=== PATIENT | male | born 1940 | race Caucasian/White ===

== ENCOUNTER → 2018-07-11 | Outpatient (CLI) | payer MEDICARE ==
--- NOTE | 2018-07-11 13:27 | RADIOLOGY REPORT (SQ) ---
EXAM DESCRIPTION: NM GASTRIC EMPTYING STUDY COMPLETED DATE/TIME: 07/11/2018 12:54 pm REASON FOR STUDY: EARLY SATIETY (R68.81) R68.81 EARLY SATIETY COMPARISON: None. RADIONUCLIDE AND DOSE: To millicuries Tc-99m Sulfur Colloid. A wide variety of solid foods have been used. The route of agent administration: Oral. TECHNIQUE: 1 minute serial static imaging performed at time of meal, 1 hour, 2 hours, 3 hours, and 4 hours as needed. Once stomach reaches 90% emptying, the test is complete. Image intensity values pl otted with respect to time with linear regression algorithm. LIMITATIONS: None. FINDINGS: Patient was observed for 4 hours. Immediate post meal serves as baseline. Gastric emptying at 30 minutes was 14.9%. Gastric emptying at 60 minutes was 29.8% Gastric emptying at 90 minutes was 44.6%. Gastric emptying at 120 minutes was 59.5%. Gastric emptying at 240 minutes was 100%. Normal values: 60 minutes: 30-90% retained. If less than 30%, abnormally rapid emptying. If greater than 90%, del ayed gastric emptying. 120 minutes: <60% retained. If greater than 60%, delayed gastric emptying. 240 minutes: <10% retained. If greater than 10%, delayed gastric emptying. IMPRESSION: NORMAL GASTRIC EMPTYING. TECHNICAL DOCUMENTATION: JOB ID: [id number] [employer]- All Rights Reserved rev-06/24 Reading location - IP/workstation name: [email or web address]
== END ==
LOC: RAD 07:42
PROVIDERS: ATTEND Internal Medicine Gastroenterology
DX: R68.81 Early satiety (principal)
CPT/HCPCS: 78264; A9541

== ENCOUNTER 2019-07-12 20:10 | Emergency (ER) | payer MEDICARE ==
[2019-07-12] MEDS ORDERED: ONDANSETRON HCL INJ/PF 4 MG/2 ML SDV IV ONE (20:53)
[2019-07-12] MEDS ORDERED: ATENOLOL 50 MG TABLET PO ONE (20:53)
[2019-07-12] MEDS ORDERED: ACETAMINOPHEN 325 MG TABLET PO ONE (20:53)
[2019-07-12] MEDS ORDERED: NORMAL SALINE 500 ML IV ONE (20:54)
--- NOTE | 2019-07-12 20:55 | ER Document Report ---
ED General - General Chief Complaint: High Blood Pressure Stated Complaint: HEADACHE Time Seen by Provider: 07/12/19 20:39 Primary Care Provider: ALE GUEVARA MD [NO LOCAL MD] - Follow up as needed Notes: Patient is a 78-year-old male who comes emergency department for chief complaint of a headache. He states the headache started at about 3:30 PM, he states that he started getting a throbbing headache in the right front of his head just behind his eye. He states he has had occasional waves of nausea as well. He denies pain in the back of his head, neck pain, head injury, fever, visual changes, focal numbness or weakness. He denies frequently getting headaches. He states the headache was worse when he first got it and it is still very bothersome now but not quite as bad. He is not on a blood thinner. Patient has past medical history of hypertension, hyperlipidemia, and cardiac stent. He also smokes. He states he is supposed to take atenolol 25 mg but he did not take it today because he did not eat dinner. He states he did not eat yet today, he usually only eats once a day at night. He denies chest pain, shortness of breath, or any other complaints. TRAVEL OUTSIDE OF THE [place] IN LAST 30 DAYS: No - Related Data Allergies/Adverse Reactions: No Known Allergies Allergy (Unverified 07/12/19 20:55) Past Medical History - General Information source: Patient - Social History Smoking Status: Current Every Day Smoker Frequency of alcohol use: Social Drug Abuse: None Lives with: Spouse/Significant other Family History: CVA - father Patient has homicidal ideation: No - Past Medical History Cardiac Medical History: Reports: Hx Coronary Artery Disease, Hx Hypercholesterolemia, Hx Hypertension Pulmonary Medical History: Reports: Hx COPD Past Surgical History: Reports: Hx Appendectomy, Hx Cardiac Catheterization - with stent Review of Systems - Review of Systems Constitutional: No symptoms reported EENT: No symptoms reported Cardiovascular: No symptoms reported Respiratory: No symptoms reported Gastrointestinal: See HPI Genitourinary: No symptoms reported Male Genitourinary: No symptoms reported Musculoskeletal: No symptoms reported Skin: No symptoms reported Hematologic/Lymphatic: No symptoms reported Neurological/Psychological: See HPI Physical Exam - Vital signs Vitals: Resp BP Pulse Ox 19 172/77 H 98 07/12/19 20:26 07/12/19 20:26 07/12/19 20:26 - Notes Notes: GENERAL: Alert, interacts well. Patient appears mildly uncomfortable HEAD: Normocephalic, atraumatic. EYES: Pupils equal, round, and reactive to light. Extraocular movements intact. ENT: Oral mucosa moist, tongue midline. Oropharynx unremarkable. Airway patent. Nares patent, sinuses non-tender, ear canals unremarkable, TM's intact. NECK: Full range of motion. Supple. Trachea midline. No lymphadenopathy. No nuchal rigidity LUNGS: Clear to auscultation bilaterally, no wheezes, rales, or rhonchi. No respiratory distress. Non-tender chest wall. HEART: Regular rate and rhythm. No murmur ABDOMEN: Soft, non-tender. Non-distended. EXTREMITIES: Moves all 4 extremities spontaneously. No edema, normal radial and dorsalis pedis pulses bilaterally. No cyanosis. BACK: no cervical, thoracic, lumbar midline tenderness. No saddle anesthesia, normal distal neurovascular exam. Moves all extremities in full range of motion. NEUROLOGICAL: Alert and oriented x3. Normal speech. Cranial nerves II through XII grossly intact. Strength 5/5 in all extremities. PSYCH: Normal affect, normal mood. SKIN: Warm, dry, normal turgor. No rashes or lesions noted. Course - Re-evaluation Re-evalutation: 07/12/19 21:03 Patient did give a very specific headache onset of 3:30 PM, after my evaluation patient was quickly scanned to stay within the 6-hour window. Headache was worse at onset. Patient is hypertensive in the 170 systolic, he was given his daily blood pressure medication, initial headache treatment, general work-up pending. Patient is not in distress and he is alert and cooperative. No neurological deficits noted on my exam. CT of the head without contrast was negative. I reevaluated patient after initial treatments and headache is unchanged. Patient will be remedicated. I reevaluated the patient, patient still states he has a headache and is uncomfortable. He does appear slightly more comfortable than previously however. However because of his concerning description along with continued headache, no previous headache history, I discussed with Dr. Blakely. Patient will be evaluated CTA with venogram focus, we do not have MRI available at this time. Venous sinus thrombosis is in the differential. CTA with venogram focus was negative. I reevaluated patient again patient is sitting up, states that his headache has completely resolved. Based on his resolution I have very low suspicion of acute emergent intracranial abnormality. I had discussed lumbar puncture with patient previously and he is already declined, at this time because his headache resolved I do not feel this is indicated regardless. Patient is very grateful for care, I did discuss expectations, follow-up, and return precautions in detail. Patient stable and well-appearing at time of discharge. Note: Patient does have COPD, when he fell asleep he became slightly hypoxic and was placed on oxygen, lungs clear, patient not hypoxic when awake, reportedly this is his baseline, I did discuss this with patient, he does have primary care follow-up. - Vital Signs Vital signs: Temp Pulse Resp BP Pulse Ox 98.4 F 80 20 126/70 H 92 07/13/19 01:15 07/13/19 01:15 07/13/19 01:15 07/13/19 01:15 07/13/19 01:15 - Laboratory Result Diagrams: 07/12/19 21:25 07/12/19 21:25 Laboratory results interpreted by me: 07/12/19 07/12/19 21:25 21:25 MCV 100 H MCH 34.1 H Sodium 135.8 L Carbon Dioxide 31 H Glucose 112 H Discharge - Discharge Clinical Impression: Elevated blood pressure reading Head ache Qualifiers: Headache type: unspecified Headache chronicity pattern: acute headache Intractability: not intractable Qualified Code(s): R51 - Headache Condition: Stable Disposition: HOME, SELF-CARE Additional Instructions: Your imaging does not show any concerning findings, your evaluation is r eassuring. You have been treated for a headache tonight and you have also been treated for your elevated blood pressure. Continue your current blood pressure medication, follow-up with your primary care for additional management of this. Take Tylenol for headaches, drink plenty of fluids, rest. Return if you worsen including returned or severe headache, vomiting, fever, or any other concerning or worsening symptoms. Referrals: ALE GUEVARA MD [NO LOCAL MD] - Follow up as needed
[2019-07-12 21:37] LABS: ABSOLUTE BASOPHILS # (AUTO) 0.1 10^3/uL (0.0-0.2); ABSOLUTE EOSINOPHILS # (AUTO) 0.1 10^3/uL (0.0-0.6); ABSOLUTE LYMPHOCYTES (AUTO) 1.1 10^3/uL (0.5-4.7); ABSOLUTE MONOCYTES (AUTO) 0.5 10^3/uL (0.1-1.4); BASOPHILS % (AUTO) 0.9 % (0-2); EOSINOPHILS % (AUTO) 1.3 % (0-6); HEMATOCRIT 44.5 % (37.9-51.0); HEMOGLOBIN 15.2 g/dL (13.5-17.0); LYMPHOCYTES % (AUTO) 14.6 % (13-45); MEAN CORPUSCULAR HEMOGLOBIN 34.1 pg (27.0-33.4); MEAN CORPUSCULAR HGB CONC 34.1 g/dL (32.0-36.0); MEAN CORPUSCULAR VOLUME 100 fl (80-97); MONOCYTES % (AUTO) 6.2 % (3-13); PLATELET COUNT 207 10^3/uL (150-450); RED BLOOD COUNT 4.46 10^6/uL (4.35-5.55); RED CELL DISTRIBUTION WIDTH 13.5 % (11.5-14.0); TOTAL CELLS COUNTED % (AUTO) 100 %; WHITE BLOOD COUNT 7.8 10^3/uL (4.0-10.5)
--- NOTE | 2019-07-12 21:41 | RADIOLOGY REPORT (SQ) ---
EXAM DESCRIPTION: CT HEAD WITHOUT IV CONTRAST COMPLETED DATE/TME: 07/12/2019 20:52 CLINICAL HISTORY: 78 years, Male, headache, nausea, hypertension COMPARISON: None. TECHNIQUE: Noncontrast CT head was acquired. Coronal and sagittal reformations were created. Images stored on PACS. All CT scanners at this facility use dose modulation, iterative reconstruction, and/or weight based dosing when appropriate to reduce radiation dose to as low as reasonably achievable (ALARA). [facility]: Dose Right [facility]: CareDose [facility]: Dose Right [facility]: Teradose 4D [facility]: [employer] LIMITATIONS: None. FINDINGS: Evaluation of the brain parenchyma reveals mild periventricular and patchy subcortical white matter low attenuation. No acute intracranial hemorrhage, mass effect, or extra-axial fluid is seen. The ventricles and sulcal spaces are normal in size and configuration for age. The globes and orbits were nearly completely excluded from the [id number]. Visualized paranasal sinuses and mastoid air cells are clear. Calcifications are evident about the bilateral carotid vasculature. Additional calcifications are noted about the bilateral vertebral vasculature. No depressed skull fractures. 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 IMPRESSION: No acute intracranial abnormality. Mild chronic microvascular ischemic change. TECHNICAL DOCUMENTATION: Quality ID # [id number]: Final reports with documentation of one or more dose reduction techniques (e.g., Automated exposure control, adjustment of the mA and/or kV according to patient size, use of iterative reconstruction technique) copyright 2011 [employer]- All Rights Reserved
[2019-07-12 22:07] LABS: ANION GAP 5 (5-19); BLOOD UREA NITROGEN 14 mg/dL (7-20); CALCIUM 8.9 mg/dL (8.4-10.2); CARBON DIOXIDE 31 mmol/L (22-30); CHLORIDE 100 mmol/L (98-107); GLUCOSE 112 mg/dL (75-110); POTASSIUM 4.4 mmol/L (3.6-5.0)
[2019-07-12] MEDS ORDERED: DIPHENHYDRAMINE HCL 50 MG/ML VIAL IV ONE (22:07)
[2019-07-12] MEDS ORDERED: METOCLOPRAMIDE HCL INJ/PF 10 MG/2 ML SDV IV ONE (22:07)
--- NOTE | 2019-07-13 00:27 | RADIOLOGY REPORT (SQ) ---
EXAM DESCRIPTION: CT venogram of the head. CLINICAL HISTORY: 78 years Male; Venogram, possible venous sinus thrombosis. CREAT 0.76 headache. Nausea. Hypertension. TECHNIQUE: CT venogram of the head using intravenous contrast.. MIP reconstructions were performed. Stenosis measurements performed using NASCET criteria. All CT scans at this facility use dose modulation, iterative reconstruction, and/or weight based dosing when appropriate to reduce radiation dose to as low as reasonably achievable. COMPARISON: Unenhanced CT scan of the brain obtained earlier in the evening FINDINGS: CT venogram of the brain: Samuels matter enhancement is symmetric. No filling defects in the major dural venous sinuses. IMPRESSION: No evidence of dural venous sinus thrombosis.
[2019-07-13] MEDS ORDERED: MORPHINE SULFATE 10 MG/ML INJ IV ONE (00:29)
[2019-07-13 01:33] VITALS: BP 126/70
--- NOTE | 2019-07-13 12:42 | EKG REPORT ---
SEVERITY:- ABNORMAL ECG - SINUS RHYTHM FIRST DEGREE AV BLOCK : Confirmed by: Lillian Desai 13-Jul-2019 12:40:21
== END 2019-07-13 01:15 | disposition home or self-care (01) ==
LOC: ER 20:10
DX: I10 Essential (primary) hypertension (principal); R51 Headache; I25.10 Atherosclerotic heart disease of native coronary artery without angina pectoris; J44.9 Chronic obstructive pulmonary disease, unspecified; R11.0 Nausea; F17.200 Nicotine dependence, unspecified, uncomplicated; Z79.899 Other long term (current) drug therapy; Z95.5 Presence of coronary angioplasty implant and graft
CPT/HCPCS: 93005; 99284; 96361; 96374; 96375; 36415; 85025; 80048; 70450; 70496; 93010; A9270 ×2; J1200; J2765; J2405; J7040